=== PATIENT | female | born 1990 | race Caucasian/White ===

== ENCOUNTER → 2023-07-12 | Outpatient (CLI) | payer BC ==
[~2023-07-12] MED LIST: DICLOFENAC POT.50 MG; MEDROL DOSEPAK4 MG PO; MOTRIN600 MG PO; MOTRIN800 MG PO; ROBAXIN750 MG PO
[2023-07-12 08:59] LABS: HEMATOCRIT 42.5 % (37.0-47.0); MEAN CORPUSCULAR HGB CONC 31.8 g/dl (33.0-37.0); MEAN PLATELET VOLUME 9.8 fl (9.6-12.3); RED BLOOD COUNT 4.83 10*6/uL (4.10-5.10); RED CELL DISTRI WIDTH 14.2 % (0-14.5); WHITE BLOOD COUNT 5.9 10*3/uL (4.8-10.8)
[2023-07-12 09:43] LABS: ALKALINE PHOSPHATASE 42 U/L (46-116); BUN 7 mg/dl (9-23); CHLORIDE 104 mmol/L (98-107); CHOLESTEROL 151 mg/dL (<200); LDL CHOLESTEROL 82 mg/dL (9-159); POTASSIUM 4.4 mmol/L (3.4-5.1); SGPT/ALT < 7 U/L (10-49); TOTAL PROTEIN 7.6 gm/dL (6.0-8.0); TRIGLYCERIDES 38 mg/dl (<150)
[2023-07-12 09:45] LABS: VITAMIN D, 25-HYDROXY 30.4 ng/mL (30-100)
== END | disposition home or self-care (01) ==
LOC: LAB 08:36
PROVIDERS: ATTEND Family Medicine
DX: E55.9 Vitamin D deficiency, unspecified (principal); R53.83 Other fatigue; K21.9 Gastro-esophageal reflux disease without esophagitis

== ENCOUNTER → 2023-08-02 | Outpatient (CLI) | payer BC | END | disposition home or self-care (01) | LOC: CT 16:33 | PROVIDERS: ATTEND Family Medicine | DX: R59.1 Generalized enlarged lymph nodes (principal); E04.1 Nontoxic single thyroid nodule ==

== ENCOUNTER → 2024-04-10 | Outpatient (CLI) | payer BC | END | disposition home or self-care (01) | LOC: RAD 08:53 | PROVIDERS: ATTEND Family Medicine | DX: M54.2 Cervicalgia (principal) ==